=== PATIENT | female | born 1980 | race Caucasian/White ===

== ENCOUNTER 2018-04-02 12:28 | Emergency (ER) | END 2018-04-02 14:37 | disposition home or self-care (01) ==

== ENCOUNTER 2018-05-10 09:02 | Outpatient (CLI) | END 2018-05-10 11:25 | disposition home or self-care (01) ==

== ENCOUNTER 2018-05-17 10:04 | Inpatient (IN) | END 2018-05-21 13:35 | disposition home or self-care (01) | DRG 798 ==